=== PATIENT | male | born 1965 | race Asian ===

== ENCOUNTER 2019-03-12 03:54 | Emergency (ER) | payer SELFPAY ==
[~2019-03-12] VITALS: Ht 162.6 cm; Wt 68.0 kg
[~2019-03-12 03:54] MED LIST: SULF500E8 PO
[2019-03-12 03:55] VITALS: BP 127/71
--- NOTE | 2019-03-12 03:55 | NUR ---
TO BED # 06 AMBULATORY
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
--- NOTE | 2019-03-12 04:13 | NUR ---
PT WOUND IRRRIGATED AND CLEANED WITH NORMAL SALINE
--- NOTE | 2019-03-12 04:34 | NUR ---
XRAY AT BEDSIDE.
--- NOTE | 2019-03-12 05:04 | NUR ---
DR. SKINNER AT BEDSIDE.
--- NOTE | 2019-03-12 05:11 | NUR ---
PT WOUND COVERED WITH NON ADHERENT DRESSING AND WRAPPED WITH COFLEX TAPE
--- NOTE | 2019-03-12 05:18 | NUR ---
RT FIFTH FINGER WRAPPED IN COFLEX BY KATHLEEN PAGE. +CMS AFTER APPLICATION OF WRAP.
--- NOTE | 2019-03-12 05:20 | NUR ---
Patient discharged with v/s stable. Written and verbal after care instructions given and explained. Patient alert, oriented and verbalized understanding of instructions. Ambulatory with steady gait. All questions addressed prior to discharge. ID band removed. Patient advised to follow up with PMD. Rx of MOTRIN, BACTRIM, KEFLEX given. Patient educated on indication of medication including possible reaction and side effects. Opportunity to ask questions provided and answered.
[2019-03-12 05:23] VITALS: BP 127/71
== END 2019-03-12 05:20 | disposition home or self-care (01) ==
LOC: MED 03:54
DX: S62.636A Displaced fracture of distal phalanx of right little finger, initial encounter for closed fracture (principal); S60.416A Abrasion of right little finger, initial encounter; W23.0XXA Caught, crushed, jammed, or pinched between moving objects, initial encounter; Y93.89 Activity, other specified; Y92.89 Other specified places as the place of occurrence of the external cause; Y99.8 Other external cause status
CPT/HCPCS: 73140; 90471; 90715; 99283; Q0092

== ENCOUNTER 2019-05-28 17:31 | Emergency (ER) | payer BC, OTHER ==
[~2019-05-28] VITALS: Ht 160 cm; Wt 65.3 kg
[2019-05-28 17:35] VITALS: BP 123/80
[2019-05-28 19:13] VITALS: BP 123/80
== END 2019-05-28 19:14 | disposition home or self-care (01) ==
LOC: MED 17:31
DX: B34.9 Viral infection, unspecified (principal)
CPT/HCPCS: 99283

== ENCOUNTER 2019-11-09 13:07 | Emergency (ER) | payer OTHER ==
[~2019-11-09] VITALS: Ht 157.5 cm; Wt 62.6 kg
[2019-11-09 13:13] VITALS: BP 135/77
--- NOTE | 2019-11-09 13:14 | NUR ---
PT AMBULATED TO ER BED 07
--- NOTE | 2019-11-09 13:20 | NUR ---
laceration to right 5th digit while washing dishes today---base of lateral digit----as per pt it kept bleeing profusely ---unwrapped coband from digit, which pt stated he had a home <3 sec cap refill--- no sanguineous drainage noted at this time--encourage pt to keep above heart level--untill MD at bedside to examine
--- NOTE | 2019-11-09 13:40 | NUR ---
PT STATES HE DOES NOT WANT SUTURES, ERMD AWARE.
[2019-11-09 14:00] VITALS: BP 135/77
--- NOTE | 2019-11-09 14:03 | NUR ---
Patient discharged with v/s stable. Written and verbal after care instructions given and explained. Patient verbalized understanding. Ambulatory with steady gait. All questions addressed prior to discharge. Advised to follow up with PMD. EDUCATED PT ON S/S OF INFECTION AND TO RETURN TO ER, URGENT CARE OR PCP TO SEEK MEDICAL CARE IF HE NOTICED ANY SYMPTOMS (DUE TO PT REFUSAL OF ANTIBIOTICS, SUTURES OR TDAP).
== END 2019-11-09 14:03 | disposition home or self-care (01) ==
LOC: MED 13:07
DX: S61.411A Laceration without foreign body of right hand, initial encounter (principal); W26.0XXA Contact with knife, initial encounter; Y93.89 Activity, other specified; Y92.89 Other specified places as the place of occurrence of the external cause; Y99.8 Other external cause status
CPT/HCPCS: 12001; 99281; 99282

== ENCOUNTER 2023-08-05 14:23 | Emergency (ER) | payer OTHER ==
[~2023-08-05] VITALS: Ht 167.6 cm; Wt 68.7 kg
[2023-08-05 14:35] VITALS: PULSE 67; RESP 20; TEMP 97.8; O2SAT 96
[2023-08-05] MEDS ORDERED: PSYL0.4C2 PO (15:43)
== END 2023-08-05 16:25 | disposition home or self-care (01) ==
LOC: MED 14:23
DX: K64.8 Other hemorrhoids (principal); Z79.899 Other long term (current) drug therapy
CPT/HCPCS: 99282